=== PATIENT | female | born 1985 | race Caucasian/White ===

== ENCOUNTER 2017-10-06 02:20 | Emergency (ER) | payer MEDICAID ==
--- NOTE | 2017-10-06 03:24 | ER Document Report ---
ED General - General Chief Complaint: Vaginal Bleeding Stated Complaint: VAGINAL BLEEDING Time Seen by Provider: 10/06/17 03:16 Notes: Patient is a pleasant 32-year-old female who is is a 1 live and one miscarriage. She presents with vaginal bleeding that started while having sex today. She is approximately 9 weeks . She says initially she had a large amount of bleeding during sex. It is now just slight spotting. She is scheduled for first OB appointment tomorrow. She has not yet had an ultrasound. She is unlikely just as well as metronidazole. She took metronidazole because of her recent diagnosis of bacterial vaginosis. Her blood type is O-. She is taking vitamins. She does not smoke or drink alcohol. Complains of just mild pressure in her pelvic region. TRAVEL OUTSIDE OF THE [place] IN LAST 30 DAYS: No - Related Data Allergies/Adverse Reactions: No Known Allergies Allergy (Verified 10/06/17 02:22) Past Medical History - Social History Smoking Status: Never Smoker Frequency of alcohol use: None Drug Abuse: None Family History: Reviewed & Not Pertinent - Immunizations Hx Diphtheria, Pertussis, Tetanus Vaccination: Yes Review of Systems - Review of Systems Notes: My Normal Review Basic REVIEW OF SYSTEMS: CONSTITUTIONAL : Denies fever, chills, or sweats. Denies recent illness. RESPIRATORY: Denies cough, cold, or chest congestion. Denies shortness of breath, difficulty breathing, or wheezing. GASTROINTESTINAL: Denies abdominal pain. Some nausea. Denies nausea, vomiting , or diarrhea. GENITOURINARY: Denies difficulty urinating, painful urination, burning, frequency, or blood in urine. FEMALE GENITOURINARY: Vaginal bleeding during sex LMP: Currently MUSCULOSKELETAL: Denies neck or back pain or joint pain or swelling. SKIN: Denies rash or skin lesions. NEUROLOGICAL: Denies altered mental status or loss of consciousness. Denies headache. Denies weakness or paralysis or loss of use of either side. Denies problems with gait or speech. Denies sensory or motor loss. ALL OTHER SYSTEMS REVIEWED AND NEGATIVE. Physical Exam - Vital signs Vitals: Temp Pulse Resp BP Pulse Ox 98.3 F 89 16 125/76 100 10/06/17 02:27 10/06/17 02:27 10/06/17 02:27 10/06/17 02:27 10/06/17 02:27 - Notes Notes: General Appearance: Well nourished, alert, cooperative, no acute distress, no obvious discomfort. Well-appearing. Vitals: reviewed, See vital signs table. Head: no swelling or tenderness to the head Eyes: PERRL, EOMI, Conjuctiva clear Mouth: No decreasd moisture Lungs: No wheezing, No rales, No rhonci, No accessory muscle use, good air exchange bilaterally. Heart: Normal rate, Regular rythm, No murmur, no rub Abdomen: Normal BS, soft, No rigidity, No reproducible abdominal tenderness to palpation, No guarding, no rebound, no abdominal masses, no organomegaly Pelvic: Normal external genitalia. No blood in vaginal vault. No vaginal lacerations seen. Cervix is closed. Some mild redness or irritation to the cervix itself. No active bleeding or excoriations to the cervix. Extremities: strength 5/5 in all extremities, good pulses in all extremities, no swelling or tenderness in the extremities, no edema. Skin: warm, dry, appropriate color, no rash Neuro: speech clear, oriented x 3, normal affect, responds appropriately to questions. Course - Re-evaluation Re-evalutation: 10/06/17 05:10 Patient's ultrasound shows intrauterine with heart rate in 180s. He does have a trenton-gestational hemorrhage. I informed the patient and her that this could result in a miscarriage or acute not effective and her could go on normal. I informed her that only time will tell. I encourage her to do pelvic rest and avoid sexual activity and not do any heavy lifting for next 2 weeks. I encouraged follow-up closely with her manager of organizational development. I encouraged her return to ER immediately if she has heavy bleeding, worsening pain, or if she feels unwell. Patient agrees with plan will be discharged home. Dictation of this chart was performed using voice recognition software; therefore, there may be some unintended grammatical errors. - Vital Signs Vital signs: Temp Pulse Resp BP Pulse Ox 98.3 F 89 16 125/76 100 10/06/17 02:27 10/06/17 02:27 10/06/17 02:27 10/06/17 02:27 10/06/17 02:27 - Laboratory Result Diagrams: 10/06/17 03:30 Discharge - Discharge Clinical Impression: Vaginal bleeding during Condition: Good Disposition: HOME, SELF-CARE Additional Instructions: Your ultrasound does show a trenton-gestational hemorrhage. This is a small amount of bleeding around the baby itself in the uterus. Sometimes this will stop on its own and your will progress as normal. Sometimes this will continue and eventually lead to miscarriage. There is no way to tell now if you eventually have a miscarriage or if this will go on to normal . It is recommended that you do not have sex or lift anything heavy for the next 2 weeks. He can go back to doing these activities if after 2 weeks you are not bleeding and your manager of organizational development says it is okay to go back to doing these activities We want to return to ER if you have heavy bleeding, severe pain, lightheadedness or dizziness, or if you feel unwell. Her ultrasound does show that your fetus has a normal heart rate and is approximately 9 weeks 6 days gestation. We have given you a dose of RhoGam being that your blood type is O-. Please inform your manager of organizational development that you have received the RhoGam today.
[2017-10-06 03:44] LABS: ABSOLUTE EOSINOPHILS # (AUTO) 0.1 10^3/uL (0.0-0.6); ABSOLUTE LYMPHOCYTES (AUTO) 2.4 10^3/uL (0.5-4.7); ABSOLUTE MONOCYTES (AUTO) 0.6 10^3/uL (0.1-1.4); ABSOLUTE NEUT (AUTO) 3.6 10^3/uL (1.7-8.2); BASOPHILS % (AUTO) 0.3 % (0-2); EOSINOPHILS % (AUTO) 0.9 % (0-6); HEMATOCRIT 40.7 % (36.0-47.0); HEMOGLOBIN 14.1 g/dL (12.0-15.5); LYMPHOCYTES % (AUTO) 35.9 % (13-45); MEAN CORPUSCULAR HEMOGLOBIN 29.1 pg (27.0-33.4); MEAN CORPUSCULAR HGB CONC 34.6 g/dL (32.0-36.0); MEAN CORPUSCULAR VOLUME 84 fl (80-97); MONOCYTES % (AUTO) 8.5 % (3-13); PLATELET COUNT 205 10^3/uL (150-450); RED BLOOD COUNT 4.83 10^6/uL (3.72-5.28); RED CELL DISTRIBUTION WIDTH 12.8 % (11.5-14.0); SEGMENTED NEUTROPHILS % (AUTO) 54.4 % (42-78); TOTAL CELLS COUNTED % (AUTO) 100 %; WHITE BLOOD COUNT 6.6 10^3/uL (4.0-10.5)
--- NOTE | 2017-10-06 04:57 | RADIOLOGY REPORT (SQ) ---
EXAM DESCRIPTION: U/S OB TRANSVAG W/DOPPLER CLINICAL HISTORY: 32 years, Female, vaginal bleeding in COMPARISON: 06/10/16 TECHNIQUE: Transvaginal. LIMITATIONS: None. FINDINGS: Living intrauterine fetus measures 9w6d with DOMINGUEZ of 05/05/18 based on crown-rump length of 2.95 cm. Cardiac activity is 182 bpm. There is a 1.4 cm perigestational hemorrhage. Cervical length is 3.0 cm and diameter of the cervical canal is up to 0.4 cm, nonspecific. Bilateral ovaries are not visualized. No significant free fluid. IMPRESSION: Living intrauterine fetus measures 9w6d with small perigestational hemorrhage. Prominent cervical canal measures 0.4 cm in diameter.
[2017-10-06 06:00] VITALS: BP 106/68
== END 2017-10-06 06:02 | disposition home or self-care (01) ==
LOC: ER 02:20
DX: O20.8 Other hemorrhage in early pregnancy (principal); Z3A.09 9 weeks gestation of pregnancy; Z87.59 Personal history of other complications of pregnancy, childbirth and the puerperium
CPT/HCPCS: 99284; 96372; 86900; 86901; 36415; 86850; 84702; 85025; 76817; 93976; J2790

== ENCOUNTER 2017-10-28 15:19 | Emergency (ER) | payer MEDICAID ==
[2017-10-28] MEDS ORDERED: NORMAL SALINE 1000 ML 1,000 ML IV ONE (15:52)
--- NOTE | 2017-10-28 16:08 | ER Document Report ---
ED Medical Screen (RME) - General Chief Complaint: Vaginal Bleeding Stated Complaint: VAGINAL BLEEDING Time Seen by Provider: 10/28/17 15:50 Mode of Arrival: Ambulatory Information source: Patient Notes: 32 yo female with 12 week (based on US here 3-5 9 weeks), with sudden onset of vaginal bleeding with small clots when she started vomiting/dry heaving this afternoon. Some mild left pelvic pain. Seen at [facility] on [facility] and FHT was ok. Does not know where the placenta is. No urinary symptoms. Alot of vomiting with this , Diclegis 2 hs, 1 am, adderall 20mg, pretnatal vitamin. Rhogam given 3-5 in ER. TRAVEL OUTSIDE OF THE [place] IN LAST 30 DAYS: No - Related Data Allergies/Adverse Reactions: No Known Allergies Allergy (Verified 10/06/17 02:22) Past Medical History Renal/ Medical History: Denies: Hx Peritoneal Dialysis - Immunizations Hx Diphtheria, Pertussis, Tetanus Vaccination: Yes
[2017-10-28 16:28] LABS: ABSOLUTE LYMPHOCYTES (AUTO) 1.3 10^3/uL (0.5-4.7); ABSOLUTE MONOCYTES (AUTO) 0.3 10^3/uL (0.1-1.4); ABSOLUTE NEUT (AUTO) 5.1 10^3/uL (1.7-8.2); BASOPHILS % (AUTO) 0.2 % (0-2); EOSINOPHILS % (AUTO) 0.3 % (0-6); HEMATOCRIT 39.2 % (36.0-47.0); HEMOGLOBIN 13.6 g/dL (12.0-15.5); LYMPHOCYTES % (AUTO) 18.7 % (13-45); MEAN CORPUSCULAR HEMOGLOBIN 29.3 pg (27.0-33.4); MEAN CORPUSCULAR HGB CONC 34.8 g/dL (32.0-36.0); MEAN CORPUSCULAR VOLUME 84 fl (80-97); MONOCYTES % (AUTO) 5.1 % (3-13); PLATELET COUNT 196 10^3/uL (150-450); RED BLOOD COUNT 4.65 10^6/uL (3.72-5.28); RED CELL DISTRIBUTION WIDTH 12.7 % (11.5-14.0); SEGMENTED NEUTROPHILS % (AUTO) 75.7 % (42-78); TOTAL CELLS COUNTED % (AUTO) 100 %; WHITE BLOOD COUNT 6.8 10^3/uL (4.0-10.5)
[2017-10-28 16:53] LABS: ALANINE AMINOTRANSFERASE 24 U/L (9-52); ALBUMIN 3.7 g/dL (3.5-5.0); ANION GAP 9 (5-19); ASPARTATE AMINO TRANSFERASE 19 U/L (14-36); BILIRUBIN,DIRECT 0.1 mg/dL (0.0-0.4); BILIRUBIN,TOTAL 0.4 mg/dL (0.2-1.3); BLOOD UREA NITROGEN 7 mg/dL (7-20); CALCIUM 9.3 mg/dL (8.4-10.2); CARBON DIOXIDE 27 mmol/L (22-30); CHLORIDE 102 mmol/L (98-107); GLUCOSE 95 mg/dL (75-110); NEONATAL BILIRUBIN RESULT 0.4 mg/dL (0.1-1.1); POTASSIUM 3.8 mmol/L (3.6-5.0); SODIUM 137.7 mmol/L (137-145)
[2017-10-28 17:11] LABS: ALKALINE PHOSPHATASE < 20 U/L (38-126)
--- NOTE | 2017-10-28 17:22 | ER Document Report ---
ED GI/ - General Chief Complaint: Vaginal Bleeding Stated Complaint: VAGINAL BLEEDING Time Seen by Provider: 10/28/17 15:50 Mode of Arrival: Ambulatory Notes: 32 yo female with 12 week (based on US here 3-5 9 weeks), with sudden onset of vaginal bleeding with small clots when she started vomiting/dry heaving this afternoon. Some mild left pelvic pain. Seen at health dept on 3-10 and FHT was ok. Does not know where the placenta is. No urinary symptoms. Alot of vomiting with this , Diclegis 2 hs, 1 am, adderall 20mg, pretnatal vitamin. Rhogam given 3-5 in ER. Has [facility] appt. November 03. TRAVEL OUTSIDE OF THE [place] IN LAST 30 DAYS: No - Related Data Allergies/Adverse Reactions: No Known Allergies Allergy (Verified 10/06/17 02:22) Past Medical History - General Information source: Patient Last Menstrual Period: 07/29/2017 - Social History Smoking Status: Never Smoker Chew tobacco use (# tins/day): No Frequency of alcohol use: None Drug Abuse: None Family History: Reviewed & Not Pertinent Patient has suicidal ideation: No Patient has homicidal ideation: No Renal/ Medical History: Denies: Hx Peritoneal Dialysis - Immunizations Hx Diphtheria, Pertussis, Tetanus Vaccination: Yes Review of Systems - Review of Systems Constitutional: No symptoms reported EENT: No symptoms reported Cardiovascular: No symptoms reported Respiratory: No symptoms reported Gastrointestinal: No symptoms reported Genitourinary: No symptoms reported Female Genitourinary: See HPI Musculoskeletal: No symptoms reported Skin: No symptoms reported Hematologic/Lymphatic: No symptoms reported Neurological/Psychological: No symptoms reported Physical Exam - Vital signs Vitals: Temp Pulse Resp BP Pulse Ox 98.4 F 84 16 112/49 L 100 10/28/17 15:44 10/28/17 15:44 10/28/17 15:44 10/28/17 15:44 10/28/17 15:44 Interpretation: Normal - General General appearance: Appears well, Alert In distress: None - HEENT Head: Normocephalic, Atraumatic Eyes: Normal Conjunctiva: Normal Pupils: PERRL Neck: Supple. No: Lymphadenopathy - Respiratory Respiratory status: No respiratory distress Chest status: Nontender Breath sounds: Normal Chest palpation: Normal - Cardiovascular Rhythm: Regular Heart sounds: Normal auscultation Murmur: No - Abdominal Inspection: Normal Distension: No distension Bowel sounds: Normal Tenderness: Nontender. No: Tender Organomegaly: No organomegaly - Back Back: Normal, Nontender. No: CVA tenderness - Extremities General upper extremity: Normal inspection, Nontender, Normal color, Normal ROM , Normal temperature General lower extremity: Normal inspection, Nontender, Normal color, Normal ROM , Normal temperature, Normal weight bearing. No: Manpreet's sign - Neurological Neuro grossly intact: Yes Cognition: Normal Orientation: AAOx4 Valdez Coma Scale Eye Opening: Spontaneous Valdez Coma Scale Verbal: Oriented Valdez Coma Scale Motor: Obeys Commands Valdez Coma Scale Total: 15 Speech: Normal Motor strength normal: LUE, RUE, LLE, RLE Sensory: Normal - Psychological Associated symptoms: Normal affect, Normal mood - Skin Skin Temperature: Warm Skin Moisture: Dry Skin Color: Normal Skin irregularity: negative: Rash Course - Re-evaluation Re-evalutation: 10/28/17 17:52 blood is slowed, only small amount when wiped. Pressure on left side low pelvis , same as when came in. Viable 13 week 5 day fetus with small subchorionic hemorrhage. Urinalysis is negative. CBC and chemistry are normal. called dr. vigil the radiologist about where the placenta is- placenta is anterior and to the right and he will add that as addendum. 10/28/17 17:[address] Tex Cantu from [facility] and states that the patient can walk and to be seen this week if she would like and the RhoGam that she was given on October 06 is good for 12 weeks so does not need today. - Vital Signs Vital signs: Temp Pulse Resp BP Pulse Ox 98.4 F 84 16 112/49 L 100 10/28/17 15:44 10/28/17 15:44 10/28/17 15:44 10/28/17 15:44 10/28/17 15:44 - Laboratory Result Diagrams: 10/28/17 16:04 10/28/17 16:04 Laboratory results interpreted by me: 10/28/17 10/28/17 16:04 17:00 Alkaline Phosphatase < 20 L Total Protein 6.0 L Beta HCG, Quant 621908.00 H Urine Blood MODERATE H Discharge - Discharge Clinical Impression: small subchorionic bleed, Vaginal bleeding, mild left pelvic pain, viable 13 week 5 day fetus Condition: Good Disposition: HOME, SELF-CARE Instructions: Pelvic Pain in ([facility]), ([facility]), Vaginal Bleeding ([facility]) Additional Instructions: see [facility] tomorrow for recheck- they have walk in appointments to ER tonight increased pain or bleeding. continue your meds Referrals: ROJAS CEDENO MD [Primary Care Provider] - Follow up tomorrow
[2017-10-28 17:24] LABS: APPEARANCE,URINE CLEAR; BILIRUBIN,URINE NEGATIVE (NEGATIVE); COLOR,URINE STRAW; GLUCOSE, URINE NEGATIVE (NEGATIVE); KETONES,URINE NEGATIVE (NEGATIVE); LEUKOCYTE ESTERASE,URINE NEGATIVE (NEGATIVE); NITRITE,URINE NEGATIVE (NEGATIVE); PROTEIN,URINE NEGATIVE (NEGATIVE); URINE SPECIFIC GRAVITY 1.004; UROBILINOGEN,URINE NEGATIVE mg/dL (<2.0)
--- NOTE | 2017-10-28 17:32 | RADIOLOGY REPORT (SQ) ---
EXAM DESCRIPTION: U/S [id number] TRNABD 1GES W/ODOP COMPLETED DATE/TIME: 10/28/2017 4:55 pm REASON FOR STUDY: 13 week vaginal bleeding COMPARISON: None. TECHNIQUE: Transabdominal static and realtime grayscale images acquired of the pelvis. Additional se lected spectral and color Doppler images recorded. All images stored on PACs. bHCG: Not available. LIMITATIONS: None. FINDINGS: FETUS: Living intrauterine . EGA: 13 weeks 5 day DOMINGUEZ: 04/30/2018 FHR: 157 beats per minute. SUBCHORIONIC BLEED: Yes SIZE OF BLEED: 1.2 x 0.5 x 0.6 cm PE UTERUS: No masses or anomalies. 12.3 x 10.9 x 5.6 cm. CERVICAL LENGTH: Not measured. Closed. RIGHT ADNEXA: Ovary not seen. No adnexal free fluid. No adnexal masses. LEFT ADNEXA: Normal ovary with normal vascular flow. 2.7 x 2.5 x 1.4 cm. There is a 1 x 0.7 x 0.9 c m cystic area. No adnexal free fluid. No adnexal masses. FREE FLUID: None. OTHER: No other significant finding. IMPRESSION: LIVING INTRAUTERINE . EGA 13 weeks 5 days. There may be a small subchorionic bleed. Trimester of : First - 0 to 13 weeks. TECHNICAL DOCUMENTATION: JOB ID: [id number] [employer]- All Rights Reserved Reading location - IP/workstation name: [email or web address]
[2017-10-28 18:16] VITALS: BP 118/68
== END 2017-10-28 18:23 | disposition home or self-care (01) ==
LOC: ER 15:19
DX: O20.8 Other hemorrhage in early pregnancy (principal); O26.891 Other specified pregnancy related conditions, first trimester; R10.2 Pelvic and perineal pain; O21.9 Vomiting of pregnancy, unspecified; Z3A.13 13 weeks gestation of pregnancy
CPT/HCPCS: 99284; 96360; 86900; 86901; 36415; 86870; 86850; 84702; 85025; 80053; 81001; 76801; J7030

== ENCOUNTER 2018-04-28 18:12 | Inpatient (IN) | payer MEDICAID ==
[2018-04-28 18:52] LABS: APPEARANCE,URINE CLEAR; BILIRUBIN,URINE NEGATIVE (NEGATIVE); COLOR,URINE YELLOW; GLUCOSE, URINE NEGATIVE (NEGATIVE); KETONES,URINE NEGATIVE (NEGATIVE); LEUKOCYTE ESTERASE,URINE TRACE (NEGATIVE); NITRITE,URINE NEGATIVE (NEGATIVE); PROTEIN,URINE NEGATIVE (NEGATIVE); URINE SPECIFIC GRAVITY 1.002; UROBILINOGEN,URINE NEGATIVE mg/dL (<2.0)
[2018-04-28 19:09] LABS: URINE AMPHETAMINES SCREEN NEGATIVE; URINE BARBITURATES SCREEN NEGATIVE; URINE BENZODIAZEPINES SCREEN NEGATIVE; URINE COCAINE SCREEN NEGATIVE; URINE MARIJUANA (THC) SCREEN NEGATIVE; URINE METHADONE SCREEN NEGATIVE; URINE PHENCYCLIDINE SCREEN NEGATIVE
[2018-04-28] MEDS ORDERED: RINGERS SOLUTION,LACTATED 1,000 ML IV ONE (19:10)
[2018-04-28] MEDS ORDERED: PENICILLIN G POTASSIUM 5,000,000 UNIT in DEXTROSE 5%-WATER 100 ML IV ONE (19:10)
[2018-04-28] MEDS ORDERED: PENICILLIN G-K 5 MILLION UNIT VIAL ONE ×2 (19:12→23:03)
[2018-04-28 19:30] LABS: BASOPHILS % (AUTO) 0.1 % (0-2); EOSINOPHILS % (AUTO) 0.1 % (0-6); TOTAL CELLS COUNTED % (AUTO) 100 %
[2018-04-28] MEDS: RINGERS SOLUTION,LACTATED 1,000 ML IV PRN ×3 (19:34→23:50)
[2018-04-28 19:38] LABS: ABSOLUTE NEUT (AUTO) 13.4 10^3/uL (1.7-8.2); HEMATOCRIT 39.1 % (36.0-47.0); HEMOGLOBIN 13.7 g/dL (12.0-15.5); LYMPHOCYTES % (AUTO) 12.1 % (13-45); MEAN CORPUSCULAR HEMOGLOBIN 29.5 pg (27.0-33.4); MEAN CORPUSCULAR HGB CONC 35.1 g/dL (32.0-36.0); MEAN CORPUSCULAR VOLUME 84 fl (80-97); MONOCYTES % (AUTO) 6.2 % (3-13); PLATELET COUNT 185 10^3/uL (150-450); RED BLOOD COUNT 4.65 10^6/uL (3.72-5.28); RED CELL DISTRIBUTION WIDTH 13.9 % (11.5-14.0); SEGMENTED NEUTROPHILS % (AUTO) 81.5 % (42-78); WHITE BLOOD COUNT 16.5 10^3/uL (4.0-10.5)
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
[2018-04-28] MEDS ORDERED: OXYTOCIN/NORMAL SALINE 0 UNIT/0 ML RTUINJ ONE (20:51)
[2018-04-28] MEDS ORDERED: OXYTOCIN/NORMAL SALINE 20 UNIT/1,000 ML RTUINJ IV PRN (20:53)
[2018-04-28] MEDS ORDERED: EPHEDRINE SULFATE INJ 50 MG/1 ML AMPULE ONE (22:57)
[2018-04-28] MEDS ORDERED: MISOPROSTOL 0.2 MG TABLET ONE (22:57)
[2018-04-28] MEDS ORDERED: FENTANYL/BUPIVACAINE/NS/PF 300 MCG/150 ML RTUINJ EPI ONE (22:57)
[2018-04-28] MEDS ORDERED: OXYTOCIN 10 UNIT/ML VIAL ONE (22:57)
[2018-04-28] MEDS ORDERED: PHENYLEPHRINE HCL INJ/PF 10 MG/1 ML SDV ONE (22:58)
[2018-04-28] MEDS ORDERED: FENTANYL CITRATE INJ/PF 100 MCG/2 ML AMPUL ONE (22:58)
[2018-04-28] MEDS ORDERED: OXYTOCIN/NORMAL SALINE 20 UNIT/1,000 ML RTUINJ ONE (22:58)
[2018-04-28] MEDS ORDERED: LIDOCAINE 1% INJ-PF (10 MG/ML) 30 ML SDV ONE (22:58)
[2018-04-28] MEDS ORDERED: BUPIVACAINE HCL 0.5 % INJ/PF 30 ML SDV ONE (22:58)
[2018-04-28] MEDS ORDERED: PENICILLIN G POTASSIUM 2,500,000 UNIT in DEXTROSE 5%-WATER 50 ML IV SCH (23:11)
[2018-04-29] MEDS ORDERED: NA PHOS,M-B/NA PHOS,DI-BA (ADULT) 133 ML ENEMA PR PRN (00:30)
[2018-04-29] MEDS ORDERED: DIPHENHYDRAMINE HCL 25 MG CAPSULE PO PRN (00:30)
[2018-04-29] MEDS ORDERED: GLYCERIN/WITCH HAZEL LEAF 1 EACH MED..PAD TP PRN (00:30)
[2018-04-29] MEDS ORDERED: MEASLES,MUMPS&RUBELLA VACC/PF 0.5 ML VIAL SUBCUT PRN (00:30)
[2018-04-29] MEDS ORDERED: DIPH/PERTUSS(ACELL)/TETANUS VAC/PF 0.5 ML SYR (>=10YO) IM PRN (00:30)
[2018-04-29] MEDS ORDERED: ZOLPIDEM TARTRATE 5 MG TABLET PO PRN (00:30)
[2018-04-29] MEDS ORDERED: ACETAMINOPHEN WITH CODEINE #3 TABLET PO PRN (00:30)
[2018-04-29] MEDS ORDERED: BENZOCAINE/MENTHOL AEROSOL SPRAY 56 ML TOP PRN (00:30)
[2018-04-29] MEDS ORDERED: OXYTOCIN/NORMAL SALINE 20 UNIT/1,000 ML RTUINJ IV PRN (00:30)
[2018-04-29] MEDS ORDERED: PROMETHAZINE HCL 25 MG TABLET PO PRN (00:30)
[2018-04-29] MEDS ORDERED: PROMETHAZINE HCL 25 MG SUPP.RECT PR PRN (00:30)
[2018-04-29] MEDS ORDERED: DIBUCAINE 1% OINTMENT 28 GM TP PRN (00:30)
[2018-04-29] MEDS ORDERED: MAGNESIUM HYDROXIDE SUSP 30 ML UDCUP PO PRN (00:30)
[2018-04-29] MEDS ORDERED: PROMETHAZINE HCL INJ 25 MG/1 ML VIAL IV PRN (00:30)
[2018-04-29] MEDS ORDERED: PSEUDOEPHEDRINE HCL 30 MG TABLET PO PRN (00:30)
[2018-04-29] MEDS ORDERED: ACETAMINOPHEN 650 MG SUPP.RECT PR PRN (00:30)
[2018-04-29] MEDS ORDERED: ACETAMINOPHEN WITH CODEINE #3 TABLET ONE (01:58)
[2018-04-29] MEDS ORDERED: IBUPROFEN 800 MG TABLET ONE (01:58)
[2018-04-29] MEDS: ACETAMINOPHEN WITH CODEINE #3 TABLET PO PRN ×2 (02:00→13:54)
[2018-04-29] MEDS: IBUPROFEN 800 MG TABLET PO SCH ×3 (02:01→17:37)
--- NOTE | 2018-04-29 02:20 | Warning Signs in Babies ---
VOD Warning Signs Datetime Report Generated by [facility]: 04/29/2018 02:20 VOD#608 -Warning Signs in Babies: Needs to be viewed. (04/28/2018 18:22:Janelle Dickey RN)
--- NOTE | 2018-04-29 02:22 | Delivery Summary ---
Del Sum A-C Datetime Report Generated by CPN: 04/29/2018 02:22 DELIVERY PERSONNEL DELIVERY PERSONNEL: [id number] Delivery Doctor:: Nerissa Kellogg MD Labor and Delivery Nurse:: Janelle Dickey RNslitter helper Nurse:: Jacey Roberts RN Bank Clerk/SIMULATION ANALYST: [place], ST MATERNAL INFORMATION Delivery Anesthesia: Epidural Medications After Delivery: Pitocin Drip 20 Units/1000ml NSS Estimated Blood Loss (ml): 100 Maternal Complications: None LABOR SUMMARY EDC: 05/05/2018 00:00 No. Babies in Womb: 1 Attempted: No Labor Anesthesia: Epidural LABOR INFORMATION Reason for Induction: Not Applicable Onset of Labor: 04/28/2018 17:00 Complete Dilatation: 04/29/2018 00:02 Oxytocin: Augmentation Group B Beta Strep: Positive Antibiotics # of Doses: 2 Antibiotics Time of Last Dose: 2348 Name of Antibiotic Given: PCN Steroids Given: None Reason Steroids Not Administered: Not Applicable MEMBRANES Membranes Rupture Method: Spontaneous Rupture of Membranes: 04/28/2018 17:00 Length of Rupture (hr): 7.30 Amniotic Fluid Color: Clear Amniotic Fluid Amount: Scant Amniotic Fluid Odor: Normal STAGES OF LABOR Stage 1 hr: 7 Stage 1 min: 2 Stage 2 hr: 0 Stage 2 min: 16 Stage 3 hr: 0 Stage 3 min: 6 Total Time in Labor hr: 7 Total Time in Labor min: 24 VAGINAL DELIVERY Episiotomy: None Laceration #1: None Laceration Extension #1: N/A Laceration Repair: Not Applicable Sponge Count Correct: N/A Sharps Count Correct: N/A CSECTION DELIVERY Primary Indication: N/A Secondary Indication: N/A CSection Incidence: N/A Labor: N/A Elective: N/A CSection Incision: N/A BABY A INFORMATION Delivery Date/Time: 04/29/2018 00:18 Method of Delivery: Vaginal Born in Route : No : N/A Forceps: N/A Vacuum Extraction: N/A Shoulder Dystocia : No PRESENTATION/POSITION BABY A Presentation: Cephalic Cephalic Presentation: Vertex Vertex Position: Left Occipital Anterior Breech Presentation: N/A PLACENTA INFORMATION BABY A Placenta Delivery Time : 04/29/2018 00:24 Placenta Method of Delivery: Spontaneous Placenta Status: Delivered SCORES BABY A Heart Rate 1 min: >100 bpm Resp Effort 1 min: Good Cry Reflex Irritability 1 min: Cough or Sneeze or Pulls Away Muscle Tone 1 min: Active Motion Color 1 min: Blue/Pale Resuscitation Effort 1 min: Tactile Stimulation SCORE 1 MIN: 8 Heart Rate 5 min: >100 bpm Resp Effort 5 min: Good Cry Reflex Irritability 5 min: Cough or Sneeze or Pulls Away Muscle Tone 5 min: Active Motion Color 5 min: Body [place], Extremities Blue Resuscitation Effort 5 min: Tactile Stimulation SCORE 5 MIN: 9 INFANT INFORMATION BABY A Gestational Age at Delivery: 39.1 Gestational Status: Full Term- 39- 40.6 Weeks Outcome : Liveborn Condition : Stable Infant Sex: Female IDENTIFICATION BABY A Infant Verification Date/Time: 04/29/2018 00:26 ID Band Number: [id number] Mother's Name Verified: Yes RN Verifying : Brittany RN Additional Verifying Personnel: [employer] RN CORD INFORMATION BABY A No. Cord Vessels: 3 Nuchal Cord : Around Neck x1, Loose Cord Blood Taken: Yes-For Eval (Mom's Blood Type - or O+) Suction: Mouth; Nose ASSESSMENT BABY A Infant Complications: None Physical Findings at Delivery: Within Normal Limits Infant Respirations: Appears Normal Skin to Skin: Yes Ribbon Sweatband Operator/ALS Called : No Infant Care By: E. Jilek, RN Transferred To: Remains with Mother BABY B INFORMATION : N/A SIGNATURES Signature: with User ID: [email or web address]
--- NOTE | 2018-04-29 09:34 | PDOC PROGRESS REPORT ---
Subjective-OB Progress Note for:: 04/29/18 Subjective: Pt doing well, no concerns. She reports light bleeding, reg diet and voiding well. Bonding with baby. Physical Exam (OB) Vital Signs: Temp Pulse Resp BP Pulse Ox 97.6 F 101 H 18 110/58 L 98 04/29/18 02:49 04/29/18 02:49 04/29/18 02:49 04/29/18 02:49 04/29/18 02:49 Intake & Output 04/28/18 04/29/18 04/30/18 06:59 06:59 06:59 Intake Total 683 Balance 683 Weight 82.9 kg - Lochia Lochia Amount: Scant < 10 ml Lochia Color: Rubra/Red - Abdomen Description: Soft, Flat Hernia Present: No Fundal Description: Firm, Midline Fundal Height: u/u - u/2 Objective-Diagnostic Laboratory: 04/28/18 19:17 04/28/18 04/28/18 04/28/18 18:22 19:17 19:17 WBC 16.5 H RBC 4.65 Hgb 13.7 Hct 39.1 MCV 84 MCH 29.5 MCHC 35.1 RDW 13.9 Plt Count 185 Seg Neutrophils % 81.5 H Lymphocytes % 12.1 L Monocytes % 6.2 Eosinophils % 0.1 Basophils % 0.1 Absolute Neutrophils 13.4 H Absolute Lymphocytes 2.0 Absolute Monocytes 1.0 Absolute Eosinophils 0.0 Absolute Basophils 0.0 Urine Color YELLOW Urine Appearance CLEAR Urine pH 7.0 Ur Specific [place] 1.002 Urine Protein NEGATIVE Urine Glucose (UA) NEGATIVE Urine Ketones NEGATIVE Urine Blood NEGATIVE Urine Nitrite NEGATIVE Ur Leukocyte Esterase TRACE H Blood Type O NEGATIVE Antibody Screen POSITIVE Assessment and Plan(PN) - Assessment and Plan (1) Vaginal delivery Is this a current diagnosis for this admission?: Yes - Time Spent with Patient Time with patient: Less than 15 minutes Medications reviewed and adjusted accordingly: Yes - Disposition Anticipated Discharge: Home Within: within 24 hours
[2018-04-29] MEDS: SENNOSIDES/DOCUSATE 8.6-50 MG 1 EACH TABLET PO SCH (10:43)
[2018-04-29] MEDS: FAMOTIDINE 20 MG TABLET PO SCH ×2 (10:43→22:07)
[2018-04-29] MEDS: DOCUSATE SODIUM 100 MG CAPSULE PO SCH ×2 (10:43→17:33)
[2018-04-29] MEDS: PRENATAL VITAMIN W DHA CAPSULE PO SCH (10:43)
[2018-04-29] MEDS: FERROUS SULFATE 325 MG TABLET PO SCH ×2 (10:44→17:35)
[2018-04-30] MEDS: ACETAMINOPHEN WITH CODEINE #3 TABLET PO PRN ×2 (00:18→22:05)
[2018-04-30] MEDS: IBUPROFEN 800 MG TABLET PO SCH ×3 (01:31→18:35)
[2018-04-30 06:29] LABS: HEMATOCRIT 33.6 % (36.0-47.0); MEAN CORPUSCULAR HEMOGLOBIN 30.6 pg (27.0-33.4); MEAN CORPUSCULAR HGB CONC 35.7 g/dL (32.0-36.0); MEAN CORPUSCULAR VOLUME 86 fl (80-97); PLATELET COUNT 160 10^3/uL (150-450); RED BLOOD COUNT 3.92 10^6/uL (3.72-5.28); WHITE BLOOD COUNT 10.7 10^3/uL (4.0-10.5)
[2018-04-30] MEDS: SENNOSIDES/DOCUSATE 8.6-50 MG 1 EACH TABLET PO SCH (10:56)
[2018-04-30] MEDS: FAMOTIDINE 20 MG TABLET PO SCH ×2 (10:57→22:05)
[2018-04-30] MEDS: PRENATAL VITAMIN W DHA CAPSULE PO SCH (10:57)
[2018-04-30] MEDS: FERROUS SULFATE 325 MG TABLET PO SCH ×2 (10:57→18:35)
[2018-04-30] MEDS: DOCUSATE SODIUM 100 MG CAPSULE PO SCH ×2 (10:57→18:35)
[2018-05-01] MEDS: IBUPROFEN 800 MG TABLET PO SCH ×2 (01:22→12:20)
--- NOTE | 2018-05-01 09:34 | PDOC PROGRESS REPORT ---
Subjective-OB Progress Note for:: 05/01/18 Subjective: Doing well, ready to go home, , voiding, ambulating, Physical Exam (OB) Vital Signs: Temp Pulse Resp BP Pulse Ox 98.0 F 84 16 112/67 100 05/01/18 07:56 05/01/18 07:56 05/01/18 07:56 05/01/18 07:56 05/01/18 07:56 Intake & Output 04/30/18 05/01/18 05/02/18 06:59 06:59 06:59 Intake Total 880 Output Total 100 Balance 880 -100 - PIH/Pre-Eclampsia Clonus: Negative Headache: Absent Epigastric Pain: No Visual Changes: No - Lochia Lochia Amount: Scant < 10 ml Lochia Color: Rubra/Red - Abdomen Description: Soft, Flat Hernia Present: No Fundal Description: Firm, Midline Fundal Height: u/u - u/2 Objective-Diagnostic Laboratory: 04/30/18 06:12 04/30/18 06:12 Blood Type O NEGATIVE Assessment and Plan(PN) - Assessment and Plan (1) History of FRANKI positive for HSV Is this a current diagnosis for this admission?: Yes (2) Vaginal delivery Is this a current diagnosis for this admission?: Yes - Time Spent with Patient Time with patient: Less than 15 minutes Medications reviewed and adjusted accordingly: Yes - Disposition Anticipated Discharge: Home Within: Other - home today
--- NOTE | 2018-05-01 09:39 | PDOC DISCHARGE SUMMARY ---
Final Diagnosis Discharge Date: 05/01/18 - Final Diagnosis (1) History of FRANKI positive for HSV Is this a current diagnosis for this admission?: Yes (2) Vaginal delivery Is this a current diagnosis for this admission?: Yes Discharge Data - Discharge Medication Home Medications: Valacyclovir HCl [Valtrex 500 mg Tablet] 500 mg PO DAILY 04/28/18 Vit/Dha [ Multi + Dha Capsule] 1 cap PO DAILY capsule Gestational Age: 39.1 Reason(s) for Admission: Onset of Labor, Group B Strep Positive Procedures: NST, Ultrasound Intrapartum Procedure(s): Spontaneous Vaginal Delivery - Data Baby 1 Female at 1 minute: 8 at 5 minutes: 9 Home with Mother: Yes Complications: No - Diagnosis Test Laboratory: Temp Pulse Resp BP Pulse Ox 98.0 F 84 16 112/67 100 05/01/18 07:56 05/01/18 07:56 05/01/18 07:56 05/01/18 07:56 05/01/18 07:56 04/28/18 04/28/18 04/30/18 18:22 19:17 06:12 RBC 4.65 3.92 Hgb 13.7 12.0 Hct 39.1 33.6 L Urine Opiates Screen NEGATIVE - Discharge information/Instructions Discharge Activity: Activity As Tolerated, No Lifting Over 10 Pounds, No Lifting /Push/Pulling, Pelvic Rest Discharge Diet: As Tolerated, Regular Disposition: HOME, SELF-CARE Follow up with: [facility] in: 2, Weeks
[2018-05-01 11:37] VITALS: BP 110/58
[2018-05-01] MEDS: SENNOSIDES/DOCUSATE 8.6-50 MG 1 EACH TABLET PO SCH (12:19)
[2018-05-01] MEDS: PRENATAL VITAMIN W DHA CAPSULE PO SCH (12:19)
[2018-05-01] MEDS: DOCUSATE SODIUM 100 MG CAPSULE PO SCH (12:20)
[2018-05-01] MEDS: FAMOTIDINE 20 MG TABLET PO SCH (12:20)
[2018-05-01] MEDS: FERROUS SULFATE 325 MG TABLET PO SCH (12:20)
== END 2018-05-01 13:34 | disposition home or self-care (01) | DRG 775 ==
LOC: LC 18:12 → LR 18:59 → 2S 04-29 02:35
PROVIDERS: ADMIT Obstetrics & Gynecology; ATTEND Obstetrics & Gynecology
PROC: 10E0XZZ Delivery of Products of Conception, External Approach (ICD-10-PCS; principal; 2018-04-29)
PROC: 3E0234Z Introduction of Serum, Toxoid and Vaccine into Muscle, Percutaneous Approach (ICD-10-PCS; 2018-05-01)
DX: O42.02 Full-term premature rupture of membranes, onset of labor within 24 hours of rupture (principal); O36.0930 Maternal care for other rhesus isoimmunization, third trimester, not applicable or unspecified; O99.824 Streptococcus B carrier state complicating childbirth; O69.81X0 Labor and delivery complicated by cord around neck, without compression, not applicable or unspecified; O99.344 Other mental disorders complicating childbirth; F31.9 Bipolar disorder, unspecified; F90.9 Attention-deficit hyperactivity disorder, unspecified type; Z3A.39 39 weeks gestation of pregnancy; Z37.0 Single live birth; Z86.19 Personal history of other infectious and parasitic diseases
CPT/HCPCS: 36415; 80307; 81005; 84112; 85025; 85027; 85461; 86592; 86850; 86870; 86900; 86901; 94760; J2370; J2540; J2590; J2790; J3010; J3490

== ENCOUNTER 2018-05-08 15:06 | Emergency (ER) | payer MEDICAID ==
--- NOTE | 2018-05-08 16:49 | ER Document Report ---
ED GI/ - General Chief Complaint: Abdominal Pain Stated Complaint: HEADACHE,UPPER ABDOMINAL PAIN Time Seen by Provider: 05/08/18 16:12 Mode of Arrival: Ambulatory Information source: Patient Notes: 32 yo female c/o pulsating from the inside in epigastric area, not rhynmic. Also c/o 2/5 frontal bilateral temporal headache. Has not taken any medications. No URI, no fever, no n/v/d, is having some constipation. Had vaginal delivery 6 weeks ago. . TRAVEL OUTSIDE OF THE [place] IN LAST 30 DAYS: No - Related Data Allergies/Adverse Reactions: No Known Allergies Allergy (Verified 05/08/18 15:12) Past Medical History - General Information source: Patient - Social History Smoking Status: Never Smoker Chew tobacco use (# tins/day): No Frequency of alcohol use: None Drug Abuse: None Lives with: Family Family History: Reviewed & Not Pertinent Patient has suicidal ideation: No Patient has homicidal ideation: No Renal/ Medical History: Denies: Hx Peritoneal Dialysis Psychiatric Medical History: Reports: Hx Attention Deficit Hyperactivity Disorder Past Surgical History: Reports: Hx Orthopedic Surgery - Orbital repair - Immunizations Hx Diphtheria, Pertussis, Tetanus Vaccination: Yes Review of Systems - Review of Systems Constitutional: No symptoms reported EENT: No symptoms reported Cardiovascular: No symptoms reported Respiratory: No symptoms reported Gastrointestinal: See HPI Genitourinary: No symptoms reported Female Genitourinary: No symptoms reported Musculoskeletal: No symptoms reported Skin: No symptoms reported Hematologic/Lymphatic: No symptoms reported Neurological/Psychological: See HPI Physical Exam - Vital signs Vitals: Temp Pulse Resp BP Pulse Ox 98.7 F 89 18 117/75 98 05/08/18 15:17 05/08/18 15:17 05/08/18 15:17 05/08/18 15:17 05/08/18 15:17 Interpretation: Normal - General General appearance: Appears well, Alert - HEENT Head: Normocephalic, Atraumatic Eyes: Normal Conjunctiva: Normal Pupils: PERRL Neck: Supple. No: Lymphadenopathy - Respiratory Respiratory status: No respiratory distress Chest status: Nontender Breath sounds: Normal Chest palpation: Normal - Cardiovascular Rhythm: Regular Heart sounds: Normal auscultation Murmur: No - Abdominal Inspection: Normal Distension: No distension Bowel sounds: Normal Tenderness: Nontender Organomegaly: No organomegaly - Back Back: Normal, Nontender. No: CVA tenderness - Extremities General upper extremity: Normal inspection, Nontender, Normal color, Normal ROM , Normal temperature General lower extremity: Normal inspection, Nontender, Normal color, Normal ROM , Normal temperature, Normal weight bearing. No: Manpreet's sign - Neurological Neuro grossly intact: Yes Cognition: Normal Orientation: AAOx4 [place] Coma Scale Eye Opening: Spontaneous [place] Coma Scale Verbal: Oriented [place] Coma Scale Motor: Obeys Commands [place] Coma Scale Total: 15 Speech: Normal Motor strength normal: LUE, RUE, LLE, RLE Sensory: Normal - Psychological Associated symptoms: Normal affect, Normal mood - Skin Skin Temperature: Warm Skin Moisture: Dry Skin Color: Normal Skin irregularity: negative: Rash Course - Vital Signs Vital signs: Temp Pulse Resp BP Pulse Ox 97.9 F 74 17 115/67 98 05/08/18 17:56 05/08/18 17:56 05/08/18 17:56 05/08/18 17:56 05/08/18 17:56 Discharge - Discharge Clinical Impression: Mild headache, epigastric pulsating sensation Condition: Good Disposition: HOME, SELF-CARE Instructions: Acetaminophen, Headache ([facility]) Additional Instructions: Tylenol for headache Return to the emergency room if symptoms worsen Referrals: ROJAS CEDENO MD [Primary Care Provider] - Follow up as needed
[2018-05-08] MEDS ORDERED: ACETAMINOPHEN 325 MG TABLET PO ONE (16:57)
[2018-05-08 17:57] VITALS: BP 115/67
== END 2018-05-08 17:57 | disposition home or self-care (01) ==
LOC: ER 15:06
DX: O90.89 Other complications of the puerperium, not elsewhere classified (principal); R19.8 Other specified symptoms and signs involving the digestive system and abdomen; R51 Headache
CPT/HCPCS: 99283; J3490

== ENCOUNTER 2019-06-14 19:04 | Emergency (ER) | payer SELFPAY ==
[2019-06-14 19:12] VITALS: BP 136/84
--- NOTE | 2019-06-14 19:25 | ER Document Report ---
HPI - HPI Time Seen by Provider: 06/14/19 19:21 Pain Level: 3 Notes: Patient is a 33-year-old female presenting with right index finger redness, pain and swelling. Patient reports approximately 2 weeks ago her finger nail was ripped off. She states that she thought that all of this was healing well until the last 2 to 3 days when she started developing redness and swelling. Patient denies any drainage from the area. Has not taken any medications for her pain. - REPRODUCTIVE Reproductive: DENIES: : Past Medical History - General Information source: Patient - Social History Smoking Status: Never Smoker Family History: Reviewed & Not Pertinent Patient has suicidal ideation: No Patient has homicidal ideation: No Renal/ Medical History: Denies: Hx Peritoneal Dialysis Psychiatric Medical History: Reports: Hx Attention Deficit Hyperactivity Disorder Past Surgical History: Reports: Hx Orthopedic Surgery - Orbital repair - Immunizations Hx Diphtheria, Pertussis, Tetanus Vaccination: Yes Vertical Provider Document - CONSTITUTIONAL Notes: PHYSICAL EXAMINATION: GENERAL: Well-appearing, well-nourished and in no acute distress. HEAD: Atraumatic, normocephalic. EYES: Pupils equal round extraocular movements intact, conjunctiva are normal. ENT: Nares patent NECK: Normal range of motion LUNGS: No respiratory distress Musculoskeletal: Normal range of motion NEUROLOGICAL: Normal speech, normal gait. PSYCH: Normal mood, normal affect. SKIN: Erythema and mild edema noted to right fourth digit, cap refill less than 3 seconds, normal motor and sensation. - INFECTION CONTROL TRAVEL OUTSIDE OF THE [place] IN LAST 30 DAYS: No Course - Re-evaluation Re-evalutation: Patient appears well, nontoxic, mild cellulitis noted to right fourth digit, cap refill less than 3 seconds. No drainable abscess identified. Will start patient on outpatient oral antibiotics and will have her do Epsom salt soaks. Strict ED return precautions were discussed, patient verbalized understanding and agreement with same. The patient's emergency department workup and current diagnosis were explained to the patient and or family. Follow-up instructions were provided. Medications if prescribed were discussed. Instructions for when to return to the emergency department including specific worrisome symptoms were discussed with the patient and/or family. - Vital Signs Vital signs: Temp Pulse Resp BP Pulse Ox 98.6 F 80 20 136/84 H 99 06/14/19 19:09 06/14/19 19:09 06/14/19 19:09 06/14/19 19:09 06/14/19 19:09 Discharge - Discharge Clinical Impression: Cellulitis Qualifiers: Site of cellulitis: unspecified site Qualified Code(s): L03.90 - Cellulitis, unspecified Condition: Stable Disposition: HOME, SELF-CARE Additional Instructions: Cellulitis You have an infection of your skin and underlying soft tissues called cellulitis. This is due to bacteria, which can enter through any break in the skin, or even through an irritated hair follicle. Untreated, cellulitis will usually worsen. Antibiotics are required. Usually, warm packs or warm soaks, and elevation of the infected area are recommended. You should start getting better within 24 to 36 hours. Most infections respond quickly to the right medication. Follow-up care is important, however, to check for abscess (boil) formation, unsuspected foreign body, or resistant infection. If you develop fever, chills, or if the area of infection is becoming rapidly more swollen or painful, call the doctor at once. Epsom salt soaks 3-4 times daily with as hot water as you can tolerate. Ibuprofen 600 mg every 6 hours for pain and inflammation. Use the narcotic pain medication for severe pain only. Take antibiotics as prescribed and finish the entire course even if your symptoms resolve. Please follow-up with orthopedics if not improved over the next 48 hours. Return to the emergency department for any new or worsening symptoms. Prescriptions: Cephalexin [Cephalexin 500 MG Tablet] 1 tab PO QID #28 tablet Hydrocodone/Acetaminophen [[place] 5-325 mg Tablet] 1 tab PO Q4H #12 tablet Referrals: RACHAEL VEGA MD [ACTIVE STAFF] - Follow up as needed
== END 2019-06-14 19:43 | disposition home or self-care (01) ==
LOC: ER 19:04
DX: L03.011 Cellulitis of right finger (principal); M79.644 Pain in right finger(s); M79.89 Other specified soft tissue disorders
CPT/HCPCS: 99283

== ENCOUNTER 2019-08-16 18:24 | Emergency (ER) | payer SELFPAY ==
[2019-08-16 20:13] LABS: A TYPE INFLUENZA AG NEGATIVE (NEGATIVE); B INFLUENZA AG NEGATIVE (NEGATIVE)
--- NOTE | 2019-08-16 20:44 | ER Document Report ---
HPI - HPI Time Seen by Provider: 08/16/19 19:21 Pain Level: 2 Notes: 34-year-old female patient presenting to the emergency department with complaints of headache, sore throat, dizziness, productive cough, sinus congestion, body aches and cold sweats. Patient reports symptoms started approximately 1 week ago. She denies any nausea, vomiting or diarrhea. - CONSTITUTIONAL Constitutional: DENIES: Fever, Chills - NEURO Neurology: REPORTS: Weakness - RESPIRATORY Respiratory: REPORTS: Trouble Breathing, Coughing - REPRODUCTIVE Reproductive: DENIES: : Past Medical History - General Information source: Patient - Social History Smoking Status: Never Smoker Frequency of alcohol use: None Family History: Reviewed & Not Pertinent Patient has suicidal ideation: No Patient has homicidal ideation: No Renal/ Medical History: Denies: Hx Peritoneal Dialysis Psychiatric Medical History: Reports: Hx Attention Deficit Hyperactivity Disorder Past Surgical History: Reports: Hx Orthopedic Surgery - Orbital repair - Immunizations Hx Diphtheria, Pertussis, Tetanus Vaccination: Yes Vertical Provider Document - CONSTITUTIONAL Notes: PHYSICAL EXAMINATION: GENERAL: Well-appearing, well-nourished and in no acute distress. HEAD: Atraumatic, normocephalic. EYES: Pupils equal round and reactive to light, extraocular movements intact, conjunctiva are normal. ENT: Nares patent, oropharynx clear without exudates. Moist mucous membranes. NECK: Normal range of motion, supple without lymphadenopathy LUNGS: Breath sounds clear to auscultation bilaterally and equal. No wheezes rales or rhonchi. HEART: Regular rate and rhythm without murmurs ABDOMEN: Soft, nontender, nondistended abdomen. No guarding, no rebound. No masses appreciated. Female : deferred Musculoskeletal: Normal range of motion, no pitting or edema. No cyanosis. NEUROLOGICAL: Cranial nerves grossly intact. Normal speech, normal gait. Norm al sensory, motor exams PSYCH: Normal mood, normal affect. SKIN: Warm, Dry, normal turgor, no rashes or lesions noted. - INFECTION CONTROL TRAVEL OUTSIDE OF THE [place] IN LAST 30 DAYS: No Course - Re-evaluation Re-evalutation: Patient appears well, nontoxic, vital signs within normal limits. Likely viral illness. Flu and strep are both negative. Conservative treatment measures discussed with patient, patient verbalizes understanding and agreement with this plan. Laboratory 08/16/19 08/16/19 19:30 19:30 Influenza A (Rapid) NEGATIVE Influenza B (Rapid) NEGATIVE Group A Strep Rapid NEGATIVE - Vital Signs Vital signs: Temp Pulse Resp BP Pulse Ox 100.1 F 96 20 108/57 L 98 08/16/19 18:57 08/16/19 18:57 08/16/19 18:57 08/16/19 18:57 08/16/19 18:57 Discharge - Discharge Clinical Impression: Viral illness Condition: Stable Disposition: HOME, SELF-CARE Instructions: Viral Syndrome ([facility]) Additional Instructions: Fortunately the rapid strep and the influenza testing today were negative. You likely have a viral illness. This mimics the flu. Please drink plenty of fluids. Alternate Tylenol and ibuprofen for any pain, fever or body aches. Take medications that I have prescribed as directed by the pharmacist. Please follow-up with primary care in 3 to 5 days for follow-up, return to the emergency department sooner if worsening. Prescriptions: Codeine Phosphate/Guaifenesin [Cheratussin AC Syrup] 10 ml PO QHS #120 ml Benzonatate [Tessalon Perles 100 mg Capsule] 1 - 2 tab PO Q8HP PRN #30 capsule PRN Reason: Prednisone [Deltasone 20 mg Tablet] 3 tab PO DAILY 5 Days #15 tablet Forms: Return to Work Referrals: RACHAEL VEGA MD [ACTIVE STAFF] - Follow up as needed
[2019-08-16 20:59] VITALS: BP 111/67
== END 2019-08-16 20:59 | disposition home or self-care (01) ==
LOC: ER 18:24
DX: B34.9 Viral infection, unspecified (principal); R51 Headache; J02.9 Acute pharyngitis, unspecified; R42 Dizziness and giddiness; R05 Cough; R09.81 Nasal congestion; M79.10 Myalgia, unspecified site
CPT/HCPCS: 87070; 87804; 87880; 99283

== ENCOUNTER 2020-02-24 20:30 | Emergency (ER) | payer MEDICAID, OTHER ==
[2020-02-24] MEDS ORDERED: LIDOCAINE 1% INJ (10 MG/ML) 10 ML MDV INJ ONE (21:14)
[2020-02-24] MEDS ORDERED: LIDOCAINE 1% INJ-PF (10 MG/ML) 30 ML SDV INJ ONE (21:14)
--- NOTE | 2020-02-24 22:01 | ER Document Report ---
ED Skin Rash/Insect Bite/Abscs - General Chief Complaint: Abscess Stated Complaint: ABSCESS UNDER RIGHT ARMPIT Time Seen by Provider: 02/24/20 21:06 Information source: Patient Notes: Patient is a 34-year-old female comes emergency room complaining of an abscess under her right axilla. Patient states her approximately 1 week ago with just 1 little bump it opened up and drained a little bit and then closed back up again then multiple bumps materialized superficially. Only the one is still mildly draining. Patient also adds that she is in her first trimester . She is currently going to the health department for her care. She also states that about a year ago she had a finger infection that came back as methicillin- resistant staph. TRAVEL OUTSIDE OF THE [place] IN LAST 30 DAYS: No - HPI Patient complains to provider of: Tender/swollen area Onset: Last week Onset/Duration: Gradual Quality of pain: Achy, Pressure, Sharp, Throbbing Severity: Moderate Pain Level: 3 Skin Character: Abscess, Drainage, Erythema, Tenderness, Thickening, Warm Skin Temperature: Warm Quality of rash: Painful Identify cause: No Relieved by: Denies Similar symptoms previously: No Recently seen / treated by doctor: No - Related Data Allergies/Adverse Reactions: No Known Allergies Allergy (Verified 08/16/19 19:11) Past Medical History - Social History Smoking Status: Unknown if Ever Smoked Cigarette use (# per day): No Chew tobacco use (# tins/day): No Smoking Education Provided: No Frequency of alcohol use: None Drug Abuse: None Family History: Reviewed & Not Pertinent Patient has suicidal ideation: No Patient has homicidal ideation: No Renal/ Medical History: Denies: Hx Peritoneal Dialysis Psychiatric Medical History: Reports: Hx Attention Deficit Hyperactivity Disorder Past Surgical History: Reports: Hx Orthopedic Surgery - Orbital repair - Immunizations Hx Diphtheria, Pertussis, Tetanus Vaccination: Yes Review of Systems - Review of Systems Constitutional: No symptoms reported EENT: No symptoms reported Cardiovascular: No symptoms reported Respiratory: No symptoms reported Gastrointestinal: No symptoms reported Genitourinary: No symptoms reported Female Genitourinary: No symptoms reported Musculoskeletal: No symptoms reported Skin: See HPI, Lumps Hematologic/Lymphatic: No symptoms reported Neurological/Psychological: No symptoms reported -: Yes All other systems reviewed and negative Physical Exam - Vital signs Vitals: Temp Pulse Resp BP Pulse Ox 99.0 F 83 16 123/71 100 02/24/20 20:42 02/24/20 20:42 02/24/20 20:42 02/24/20 20:42 02/24/20 20:42 Interpretation: Normal - Notes Notes: PHYSICAL EXAMINATION: GENERAL: well-nourished and in no acute distress. HEAD: Atraumatic, normocephalic. EYES: Pupils equal round and reactive to light, extraocular movements intact, conjunctiva are normal. ENT: Nares patent, oropharynx clear without exudates. Moist mucous membranes. NECK: Normal range of motion, supple without lymphadenopathy LUNGS: Breath sounds clear to auscultation bilaterally and equal. No wheezes rales or rhonchi. HEART: Regular rate and rhythm without murmurs NEUROLOGICAL: Normal speech, normal gait. Normal sensory, motor exams PSYCH: Normal mood, normal affect. SKIN: Examination patient her concern is her right axilla. Patient is oozing out of the main area which is mid axillary. L her axilla. Then this extends up and into the proximal end of the upper arm. Most of the presentation appears that besides the one that is almost draining that the rest is lymph node involvement. Patient is moderately tender throughout the whole entire area. Course - Re-evaluation Re-evalutation: 02/24/20 22:01 Patient elected just to have an I&D of the area. I was able to attempt to aspirate 2-3 of the larger areas that felt more firm and more lymph node-like appearance. I was unable to drain any residual out of those I do believe those were lymph nodes. - Vital Signs Vital signs: Temp Pulse Resp BP Pulse Ox 99.0 F 83 16 123/71 100 02/24/20 20:42 02/24/20 20:42 02/24/20 20:42 02/24/20 20:42 02/24/20 20:42 Procedures - Incision and Drainage Right Lateral Arm Time completed: 22:02 Type: Complex, Single, Multiple Anesthetic type: 1% Lidocaine mL's of anesthetic: 6 Blade size: 11 I&D procedure: Betadine prep applied, Chlorprep applied, Iodoform packing placed, Sterile dressing applied Incision Method: Incision made by scalpel Amount/type of drainage: Small serosanguineous Notes: 02/24/20 22:03 As stated in the previous note area was attempted to have aspiration of the different parts of the firm nodules and no aspirate was returned. Given that I do not feel that that the rest of them were abscess material that most on right lymph node swelling. Discharge - Discharge Clinical Impression: Abscess, Lymphangitis Disposition: HOME, SELF-CARE Instructions: Abscess ([facility]), Cephalexin ([facility]), Clindamycin ([facility]) Additional Instructions: As we discussed the abscess under her arm is substantial enough that we need to worry about having you covered with 2 antibiotics. And since you have a history of methicillin-resistant staph we treat for that basically anyhow. Given your current condition of clindamycin is not contraindicated and the benefits of it secondary to the fact that you have had methicillin-resistant staph aureus in the past is high. So we are placing you on the clindamycin 300 mg 4 times a day and the Keflex. This gives us a broader range of coverage. I want you to follow-up with the health department in the next 24 to 48 hours or return here to the emergency room for the reevaluation. If the little string comes out it is not a huge deal continue with warm moist compresses as we discussed as warm as you can stand it from the sink do not burn yourself. This will also help draw to ahead. You can only take Tylenol in for pain and discomfort even take up to 3000 mg / 3 g in 24-hour. This is 1000 mg every 8 hours. Should you have any concerns or problems he can also return to ER for reevaluation. If the string is not been removed or fallen out on its own in 48 hours I like to have you back to the emergency room for reevaluation in approxim ately that time. You can return sooner if the pain gets worse or the swelling gets worse. Prescriptions: Clindamycin HCl 300 mg PO QID #40 capsule Cephalexin Monohydrate [Keflex 500 mg Capsule] 500 mg PO Q6H 5 Days #20 capsule Forms: Smoking Cessation Education, Return to Work Referrals: [facility] [NO LOCAL MD] - Follow up as needed
[2020-02-24] MEDS ORDERED: CLINDAMYCIN HCL 150 MG CAPSULE PO ONE (22:13)
[2020-02-24] MEDS ORDERED: CEPHALEXIN 500 MG CAPSULE PO ONE (22:13)
[2020-02-24 23:19] VITALS: BP 110/70
== END 2020-02-24 23:19 | disposition home or self-care (01) ==
LOC: ER 20:30
DX: O99.711 Diseases of the skin and subcutaneous tissue complicating pregnancy, first trimester (principal); L02.411 Cutaneous abscess of right axilla; O99.411 Diseases of the circulatory system complicating pregnancy, first trimester; I89.1 Lymphangitis; Z3A.00 Weeks of gestation of pregnancy not specified
CPT/HCPCS: 99283; 87070; 87205; 87077; 87186; 10060; J3490

== ENCOUNTER 2020-03-04 10:38 | Emergency (ER) | payer MEDICAID ==
--- NOTE | 2020-03-04 11:45 | ER Document Report ---
ED Medical Screen (RME) - General Stated Complaint: VAGINAL BLEEDING Time Seen by Provider: 03/04/20 11:41 Notes: HPI: 34-year-old female who is approximately 8 weeks by dates presenting for vaginal bleeding today. States she has had slight pink discharge over the last 2 or 3 days developed some pelvic pressure and passed several small clots this morning. Has not yet seen [facility] for this . She is a G4, PHYSICAL EXAMINATION: exam deferred in triage. No tenderness on palpation over the pelvis. Gravid uterus not palpable. I have greeted and performed a rapid initial assessment of this patient. A comprehensive ED assessment and evaluation of the patient, analysis of test results and completion of medical decision making process will be conducted by an additional ED providers. TRAVEL OUTSIDE OF THE [place] IN LAST 30 DAYS: No - Related Data Allergies/Adverse Reactions: No Known Allergies Allergy (Verified 03/04/20 11:41) Past Medical History Renal/ Medical History: Denies: Hx Peritoneal Dialysis Psychiatric Medical History: Reports: Hx Attention Deficit Hyperactivity Disorder Past Surgical History: Reports: Hx Orthopedic Surgery - Orbital repair - Immunizations Hx Diphtheria, Pertussis, Tetanus Vaccination: Yes Physical Exam - Vital signs Vitals: Temp Pulse Resp BP Pulse Ox 98.7 F 88 18 128/66 H 100 03/04/20 10:41 03/04/20 10:41 03/04/20 10:41 03/04/20 10:41 03/04/20 10:41 Course - Vital Signs Vital signs: Temp Pulse Resp BP Pulse Ox 98.7 F 88 18 128/66 H 100 03/04/20 10:41 03/04/20 10:41 03/04/20 10:41 03/04/20 10:41 03/04/20 10:41
[2020-03-04 12:25] LABS: ABSOLUTE LYMPHOCYTES (AUTO) 1.5 10^3/uL (0.5-4.7); ABSOLUTE MONOCYTES (AUTO) 0.3 10^3/uL (0.1-1.4); ABSOLUTE NEUT (AUTO) 4.7 10^3/uL (1.7-8.2); BASOPHILS % (AUTO) 0.1 % (0-2); EOSINOPHILS % (AUTO) 0.1 % (0-6); HEMATOCRIT 38.5 % (36.0-47.0); HEMOGLOBIN 13.4 g/dL (12.0-15.5); LYMPHOCYTES % (AUTO) 22.6 % (13-45); MEAN CORPUSCULAR HEMOGLOBIN 28.4 pg (27.0-33.4); MEAN CORPUSCULAR HGB CONC 34.8 g/dL (32.0-36.0); MEAN CORPUSCULAR VOLUME 82 fl (80-97); MONOCYTES % (AUTO) 4.9 % (3-13); PLATELET COUNT 263 10^3/uL (150-450); RED BLOOD COUNT 4.72 10^6/uL (3.72-5.28); RED CELL DISTRIBUTION WIDTH 14.2 % (11.5-14.0); SEGMENTED NEUTROPHILS % (AUTO) 72.3 % (42-78); TOTAL CELLS COUNTED % (AUTO) 100 %; WHITE BLOOD COUNT 6.5 10^3/uL (4.0-10.5)
[2020-03-04 12:35] LABS: ALBUMIN 3.8 g/dL (3.5-5.0); ALKALINE PHOSPHATASE 20 U/L (38-126); ASPARTATE AMINO TRANSFERASE 17 U/L (14-36); BILIRUBIN,TOTAL 0.4 mg/dL (0.2-1.3); BLOOD UREA NITROGEN 6 mg/dL (7-20); CALCIUM 9.1 mg/dL (8.4-10.2); CARBON DIOXIDE 27 mmol/L (22-30); CHLORIDE 104 mmol/L (98-107); GLUCOSE 76 mg/dL (75-110); POTASSIUM 4.5 mmol/L (3.6-5.0); TOTAL PROTEIN 6.6 g/dL (6.3-8.2)
[2020-03-04 12:39] LABS: APPEARANCE,URINE CLEAR; BILIRUBIN,URINE NEGATIVE (NEGATIVE); COLOR,URINE YELLOW; GLUCOSE, URINE NEGATIVE (NEGATIVE); KETONES,URINE NEGATIVE (NEGATIVE); LEUKOCYTE ESTERASE,URINE NEGATIVE (NEGATIVE); NITRITE,URINE NEGATIVE (NEGATIVE); PROTEIN,URINE NEGATIVE (NEGATIVE); URINE SPECIFIC GRAVITY 1.009; UROBILINOGEN,URINE NEGATIVE mg/dL (<2.0)
[2020-03-04 12:52] LABS: ANION GAP 4 (5-19)
--- NOTE | 2020-03-04 13:05 | RADIOLOGY REPORT (SQ) ---
EXAM DESCRIPTION: U/S OB TRANSVAG W/DOPPLER IMAGES COMPLETED DATE/TIME: 03/04/2020 12:49 pm REASON FOR STUDY: preg bleeding COMPARISON: None. EXAM PARAMETERS: TECHNIQUE: Static and real-time grayscale images acquired of the pelvis. Additional selected spectral and color Doppler images recorded. All images stored on PACS. LABORATORY: bHCG: Pending LIMITATIONS: None. FINDINGS: FETUS: Living intra-uterine fetus. [place]-rump length measures 2.03 cm. EGA: 8 Weeks 4 days DOMINGUEZ: 10/10/2020 FHR: 178 beats per minute. PLACENTA: Not visualized. SUBCHORIONIC BLEED: No. SIZE OF BLEED: Not applicable. UTERUS: No masses. No anomalies. CERVICAL LENGTH: 3.6 cm. Closed. RIGHT ADNEXA: Normal ovary with normal vascular flow. No adnexal free fluid. No adnexal masses. LEFT ADNEXA: Contains a dominant follicle. Otherwise, unremarkable with normal vascular flow. No adnexal free fluid. No adnexal masses. FREE FLUID: None. OTHER: No other significant finding. IMPRESSION: LIVING INTRAUTERINE . EGA 8 WEEKS 4 DAYS Trimester of : First - 0 to 13 weeks. RECOMMENDATION: Clinical correlation. TECHNICAL DOCUMENTATION: JOB ID: [id number] [employer]- All Rights Reserved Reading location - IP/workstation name: [email or web address]
--- NOTE | 2020-03-04 14:28 | ER Document Report ---
ED GI/ - General Chief Complaint: Vaginal Bleeding Stated Complaint: VAGINAL BLEEDING Time Seen by Provider: 03/04/20 11:41 Primary Care Provider: [facility] [Provider Group] - Follow up in 3-5 days Notes: Patient is a 34-year-old female who presents the emergency department with a chief complaint of vaginal bleeding. Patient states that her bleeding started 3 to 4 days ago and this morning she ended up passing a few bright red clots. Patient states that she is about 8 weeks . Denies any intercourse. Denies putting anything in her vagina. Denies any vaginal discharge. Patient was treated with clindamycin and Keflex for an abscess in her axilla area. Patient states that she is to continue to take this medications. TRAVEL OUTSIDE OF THE [place] IN LAST 30 DAYS: No - Related Data Allergies/Adverse Reactions: No Known Allergies Allergy (Verified 03/04/20 11:41) Past Medical History - Social History Smoking Status: Never Smoker Family History: Reviewed & Not Pertinent Patient has homicidal ideation: No Renal/ Medical History: Denies: Hx Peritoneal Dialysis Psychiatric Medical History: Reports: Hx Attention Deficit Hyperactivity Diso rder Past Surgical History: Reports: Hx Orthopedic Surgery - Orbital repair - Immunizations Hx Diphtheria, Pertussis, Tetanus Vaccination: Yes Review of Systems - Review of Systems Notes: REVIEW OF SYSTEMS: CONSTITUTIONAL : Denies recent illness. Denies recent unintentional weight loss. Denies fever, chills, or sweats. EENT: Denies eye, ear, throat, or mouth pain, discharge, or symptoms. Denies nasal or sinus congestion. CARDIOVASCULAR: Denies chest pain. RESPIRATORY: Denies shortness of breath, cough, congestion, difficulty breathing, or wheezing. GASTROINTESTINAL: Denies nausea, vomiting, and diarrhea. Denies abdominal pain. Denies constipation. GENITOURINARY: Denies difficulty urinating, burning, blood in urine, urgency or frequency. FEMALE GENITOURINARY: See HPI. MUSCULOSKELETAL: Denies neck and back pain. Denies joint pain or swelling. SKIN: Denies rash, itchiness, or lesions HEMATOLOGIC : Denies easy bruising or bleeding. LYMPHATIC: Denies swollen, painful, enlarged glands. NEUROLOGICAL: Denies no numbness or tingling denies weakness. Denies headache. Denies altered mental status. Denies alteration in speech. PSYCHIATRIC: Denies stress, anxiety, alteration in sleep patterns, or depression. All other systems reviewed and negative. Physical Exam - Vital signs Vitals: Temp Pulse Resp BP Pulse Ox 98.7 F 88 18 128/66 H 100 03/04/20 10:41 03/04/20 10:41 03/04/20 10:03/04/20 10:03/04/20 10:41 - Notes Notes: PHYSICAL EXAMINATION: GENERAL: Appears well, healthy, well-nourished, no acute distress. HEAD: Normocephalic, atraumatic. EYES: PERRL, conjunctiva normal, all extraocular movements intact, sclera nonicteric ENT: Moist mucous membranes. NECK: Supple, no noticeable swelling, redness, rash. Normal range of motion. LUNGS: Equal breath sounds bilaterally and clear to auscultation. No wheezes rales or rhonchi. CARDIOVASCULAR: S1-S2, regular rate, regular rhythm. Radial pulses 2+, normal. ABDOMEN: Normoactive bowel sounds. Soft, tender mid lower abdomen, no guarding, no rebound tenderness, and no masses palpated. EXTREMITIES: Normal strength and range of motion, no pitting or edema. No cyanosis. NEUROLOGICAL: Moves all extremities upon command. Strength 5/5 in all extremities. PSYCH: Normal mood, normal affect. SKIN: Warm, dry. No rash, lesions, ulcerations noted. Normal skin turgor. Course - Re-evaluation Re-evalutation: 03/04/20 14:30 Ultrasound shows a live intrauterine with estimated gestational age of 8 weeks and 4 days. Cervix is closed. Hematology is unremarkable. Chemistries are unremarkable. LFTs are normal. She has a hCG of 145,040. Patient has a small amount of blood in her urine, but this is consistent with her vaginal bleeding. Patient will receive a RhoGam shot here. She will also be tested for gonorrhea and chlamydia. She does not think she has it, but I would like to test her for it anyways. Would not empirically treat her, but will have her follow-up with [facility] in regards to her vaginal bleedi ng. - Vital Signs Vital signs: Temp Pulse Resp BP Pulse Ox 98.7 F 88 18 128/66 H 100 03/04/20 10:41 03/04/20 10:03/04/20 10:41 03/04/20 10:41 03/04/20 10:41 - Laboratory Result Diagrams: 03/04/20 11:56 03/04/20 11:56 Laboratory results interpreted by me: 03/04/20 03/04/20 03/04/20 11:56 11:56 11:56 RDW 14.2 H Sodium 134.7 L Anion Gap 4 L BUN 6 L Alkaline Phosphatase 20 L Beta HCG, Quant 938276.00 H Urine Blood SMALL H Discharge - Discharge Clinical Impression: Vaginal bleeding Qualifiers: Weeks of gestation: 8 weeks Qualified Code(s): Z3A.08 - 8 weeks gestation of Condition: Stable Disposition: HOME, SELF-CARE Additional Instructions: You were seen today in the emergency department for vaginal bleeding during . You received a RhoGam shot here. Please continue the antibiotics you are on for your abscess. Follow-up with [facility] in the next 3 to 5 days. Referrals: [facility] [Provider Group] - Follow up in 3-5 days
[2020-03-04 16:21] VITALS: BP 115/70
[2020-03-04 17:22] LABS: CHLAM PCR NOT DETECTED (NOT DETECT)
== END 2020-03-04 16:24 | disposition home or self-care (01) ==
LOC: ER 10:38
DX: O46.91 Antepartum hemorrhage, unspecified, first trimester (principal); Z3A.08 8 weeks gestation of pregnancy
CPT/HCPCS: 99284; 96372; 86900; 36415; 86850; 84702; 83690; 85025; 80053; 81001; 87491; 87591; 76817; 93976; 86901; J2790

== ENCOUNTER 2020-03-20 16:32 | Emergency (ER) | payer MEDICAID ==
[2020-03-20 16:41] VITALS: BP 130/63
--- NOTE | 2020-03-20 18:36 | ER Document Report ---
ED Medical Screen (RME) - General Chief Complaint: Vag Bleeding, +preg <12wks Stated Complaint: VAGINAL BLEEDING Time Seen by Provider: 03/20/20 18:30 Mode of Arrival: Ambulatory Information source: Patient Notes: 34-year-old female presents to ED for vaginal bleeding no pain no discomfort. She is 3 para 2 she is 11 weeks . She is O- blood and received RhoGam March 04. She states that she went to the health department and had a pelvic done. She states she had sex last night. She states she is having no cramping no discomfort and has not noticed any vaginal bleeding but during the exam they told her she had some bleeding in her cervix. She states the health department did a lot of blood work today at her appointment. She states she is having absolutely no pain and did not want to come to the emergency room but to go along with the recommendation she did come in for the ultrasound. Patient is alert oriented respirations regular unlabored speaking in full sentences. Have ordered a transabdominal ultrasound I have greeted and performed a rapid initial assessment of this patient. A comprehensive ED assessment and evaluation of the patient, analysis of test results and completion of medical decision making process will be conducted by an additional ED providers. TRAVEL OUTSIDE OF THE [place] IN LAST 30 DAYS: No - Related Data Allergies/Adverse Reactions: No Known Allergies Allergy (Verified 03/20/20 18:16) Home Medications: diclegis, adderall, pnv Past Medical History - Social History Chew tobacco use (# tins/day): No Frequency of alcohol use: None Drug Abuse: None Renal/ Medical History: Denies: Hx Peritoneal Dialysis Psychiatric Medical History: Reports: Hx Attention Deficit Hyperactivity Disorder Past Surgical History: Reports: Hx Orthopedic Surgery - Orbital repair - Immunizations Hx Diphtheria, Pertussis, Tetanus Vaccination: Yes Physical Exam - Vital signs Vitals: Temp Pulse Resp BP Pulse Ox 97.8 F 91 16 130/63 H 100 03/20/20 16:40 03/20/20 16:40 03/20/20 16:40 03/20/20 16:40 03/20/20 16:40 Course - Vital Signs Vital signs: Temp Pulse Resp BP Pulse Ox 97.8 F 91 16 130/63 H 100 03/20/20 16:40 03/20/20 16:40 03/20/20 16:40 03/20/20 16:40 03/20/20 16:40
--- NOTE | 2020-03-20 19:35 | RADIOLOGY REPORT (SQ) ---
EXAM DESCRIPTION: U/S [id number] TRNABD 1GES W/ODOP IMAGES COMPLETED DATE/TIME: 03/20/2020 7:14 pm REASON FOR STUDY: Vaginal bleeding 11 weeks COMPARISON: None. TECHNIQUE: Transabdominal static and realtime grayscale images acquired of the pelvis. Additional se lected spectral and color Doppler images recorded. All images stored on PACs. bHCG: Not available. CLINICAL DATES: LMP 01/09/2020 10 weeks 1 day LIMITATIONS: None. FINDINGS: FETUS: Single Living intrauterine . ULTRASOUND EGA: 10 weeks 5 days ULTRASOUND DOMINGUEZ: 10/11/2020 EFW: Not applicable less than 20 weeks. CRL: 3.9 cm FHR: 149 beats per minute. SURVEY: Too early to assess. AMNIOTIC FLUID: Adequate amount. PLACENTA: Not yet developed due to early gestation. SUBCHORIONIC BLEED: Yes SIZE OF BLEED: 1.5 x 0.6 x 1.1 cm. UTERUS: No masses. No anomalies. CERVICAL LENGTH: 4.5 cm Closed. RIGHT ADNEXA: Normal ovary with normal vascular flow. 3.6 x 2.1 x 2.3 cm No adnexal free fluid. No adnexal masses. LEFT ADNEXA: Normal ovary with normal vascular flow. 2.8 x 1.2 x 3.3 cm No adnexal free fluid. No adnexal masses. FREE FLUID: None. OTHER: No other significant finding. IMPRESSION: Live intrauterine gestation with a small subchorionic bleed. EGA 10 weeks 5 days. Trimester of : First trimester - 0 to 13 weeks. TECHNICAL DOCUMENTATION: JOB ID: [id number] 2010 [employer]- All Rights Reserved rev Reading location - IP/workstation name: [email or web address]
--- NOTE | 2020-03-20 19:54 | ER Document Report ---
HPI - HPI Time Seen by Provider: 03/20/20 18:30 Pain Level: Denies Notes: 34-year-old female patient G3, P2 presenting to the emergency department with request for an ultrasound. Patient is approximately 10 weeks , she had some vaginal bleeding about 10 days ago. She was seen here at this emergency department, given RhoGam and sent home after having a normal work-up including ultrasound. Patient reports she followed up today with the health department, w hen they went to do a pelvic exam they noticed a small amount of bleeding so they wanted her to come to the emergency department for an ultrasound. Patient denies any active bleeding. She denies any abdominal cramping. She states she feels well. - ROS Systems Reviewed and Negative: Yes All other systems reviewed and negative - CONSTITUTIONAL Constitutional: DENIES: Fever, Chills - REPRODUCTIVE LMP: 10/16/2019 Reproductive: REPORTS: :, Abnormal bleeding / discharge. DENIES: Postmenopausal Past Medical History - General Information source: Patient - Social History Smoking Status: Never Smoker Chew tobacco use (# tins/day): No Frequency of alcohol use: None Drug Abuse: None Family History: Reviewed & Not Pertinent Patient has homicidal ideation: No Renal/ Medical History: Denies: Hx Peritoneal Dialysis Psychiatric Medical History: Reports: Hx Attention Deficit Hyperactivity Disorder Past Surgical History: Reports: Hx Orthopedic Surgery - Orbital repair - Immunizations Hx Diphtheria, Pertussis, Tetanus Vaccination: Yes Vertical Provider Document - CONSTITUTIONAL Notes: PHYSICAL EXAMINATION: GENERAL: Well-appearing, well-nourished and in no acute distress. HEAD: Atraumatic, normocephalic. EYES: Pupils equal round and reactive to light, extraocular movements intact, conjunctiva are normal. ENT: Nares patent, oropharynx clear without exudates. Moist mucous membranes. NECK: Normal range of motion, supple without lymphadenopathy LUNGS: Breath sounds clear to auscultation bilaterally and equal. No wheezes rales or rhonchi. HEART: Regular rate and rhythm without murmurs ABDOMEN: Soft, nontender, nondistended abdomen. No guarding, no rebound. No masses appreciated. Female : deferred Musculoskeletal: Normal range of motion, no pitting or edema. No cyanosis. NEUROLOGICAL: Cranial nerves grossly intact. Normal speech, normal gait. Normal sensory, motor exams PSYCH: Normal mood, normal affect. SKIN: Warm, Dry, normal turgor, no rashes or lesions noted. - INFECTION CONTROL TRAVEL OUTSIDE OF THE [place] IN LAST 30 DAYS: No Course - Re-evaluation Re-evalutation: Patient appears well, nontoxic. She received RhoGam approximately 10 days ago. She is declining any lab work-up today. Her ultrasound shows a subchorionic hemorrhage otherwise normal wellbeing. Patient given a copy of the ultrasound. She will follow back up with the health department. Patient has no other needs or concerns today. - Vital Signs Vital signs: Temp Pulse Resp BP Pulse Ox 97.8 F 91 16 130/63 H 100 03/20/20 16:40 03/20/20 16:40 03/20/20 16:40 03/20/20 16:40 03/20/20 16:40 Discharge - Discharge Clinical Impression: Qualifiers: Weeks of gestation: 10 weeks Qualified Code(s): Z3A.10 - 10 weeks gestation of Subchorionic hemorrhage Qualifiers: Fetus number: single or unspecified fetus Trimester: first trimester Qualified Code(s): O41.8X10 - Other specified disorders of amniotic fluid and membranes, first trimester, not applicable or unspecified Condition: Stable Disposition: HOME, SELF-CARE Additional Instructions: Please keep any and all follow-ups that you have scheduled with the health department and/or your [employer]. Please return to the emergency department immediately if you develop any new or worsening symptoms. Forms: Return to Work
== END 2020-03-20 20:12 | disposition home or self-care (01) ==
LOC: ER 16:32
DX: O20.8 Other hemorrhage in early pregnancy (principal); Z3A.10 10 weeks gestation of pregnancy
CPT/HCPCS: 76801; 99284